=== PATIENT | female | born 1950 | race Two or more races ===

== ENCOUNTER 2020-11-23 12:22 | Emergency (ER) | payer OTHER ==
[~2020-11-23] VITALS: Ht 152.4 cm; Wt 81.6 kg
[2020-11-23] MEDS ORDERED: COZAAR100 MG (12:28)
[2020-11-23] MEDS ORDERED: SYNTHROID100 MCG (12:28)
[2020-11-23] MEDS ORDERED: CARVEDILOL3.125 M1 (12:28)
== END 2020-11-23 18:40 | disposition home or self-care (01) ==
LOC: ER 12:22
DX: G44.40 Drug-induced headache, not elsewhere classified, not intractable (principal); I10 Essential (primary) hypertension; T50.B95A Adverse effect of other viral vaccines, initial encounter

== ENCOUNTER 2020-12-09 13:49 | Outpatient (CLI) | payer OTHER ==
[~2020-12-09 13:49] MED LIST: CARVEDILOL3.125 M1; COZAAR100 MG; SYNTHROID100 MCG
== END 2020-12-09 13:54 | disposition home or self-care (01) ==
LOC: TOM 13:49
PROVIDERS: ATTEND General Practice
DX: R22.1 Localized swelling, mass and lump, neck (principal); M25.511 Pain in right shoulder

== ENCOUNTER 2021-09-09 10:18 | Outpatient (CLI) | payer OTHER | END 2021-09-09 10:24 | disposition home or self-care (01) | LOC: SONOGRAMA 10:18 | PROVIDERS: ATTEND General Practice | DX: E03.9 Hypothyroidism, unspecified (principal); E04.1 Nontoxic single thyroid nodule ==

== ENCOUNTER 2021-09-13 13:05 | Outpatient (CLI) | payer OTHER | END 2021-09-13 13:09 | disposition home or self-care (01) | LOC: SONOGRAMA 13:05 | PROVIDERS: ATTEND General Practice | DX: E03.9 Hypothyroidism, unspecified (principal); E04.1 Nontoxic single thyroid nodule ==

== ENCOUNTER 2022-04-26 13:02 | Outpatient (CLI) | payer OTHER | END 2022-04-26 13:03 | disposition home or self-care (01) | LOC: MAMO-SONO 13:02 | DX: Z12.39 Encounter for other screening for malignant neoplasm of breast (principal) ==

== ENCOUNTER → 2022-04-26 | Outpatient (CLI) | payer OTHER | END | disposition home or self-care (01) | LOC: NUCLEAR 11:30 | DX: Z13.820 Encounter for screening for osteoporosis (principal); M85.89 Other specified disorders of bone density and structure, multiple sites ==

== ENCOUNTER 2022-06-29 12:45 | Outpatient (CLI) | payer OTHER | END 2022-06-29 12:50 | disposition home or self-care (01) | LOC: RAD 12:45 | PROVIDERS: ATTEND General Practice | DX: M54.2 Cervicalgia (principal); M10.9 Gout, unspecified ==

== ENCOUNTER 2022-08-10 09:51 | Outpatient (CLI) | payer OTHER | END 2022-08-10 10:06 | disposition home or self-care (01) | LOC: SONOGRAMA 09:51 | PROVIDERS: ATTEND Internal Medicine Endocrinology, Diabetes & Metabolism | DX: E04.2 Nontoxic multinodular goiter (principal); R59.0 Localized enlarged lymph nodes ==